=== PATIENT | female | born 1970 | race Caucasian/White ===

== ENCOUNTER 2017-10-18 06:15 | Day surgery (SDC) | END 2017-10-25 09:42 | disposition home or self-care (01) ==

== ENCOUNTER 2018-04-18 17:48 | Observation (INO) | END 2018-04-19 18:50 | disposition home or self-care (01) ==

== ENCOUNTER → 2018-06-13 | Outpatient (CLI) | END | disposition home or self-care (01) ==

== ENCOUNTER 2018-09-18 13:41 | Inpatient (IN) | END 2018-09-21 14:30 | disposition home or self-care (01) | DRG 627 ==